=== PATIENT | female | born 1950 | race Caucasian/White ===

== ENCOUNTER → 2022-01-20 | Outpatient (CLI) | payer MEDICARE, OTHER ==
--- NOTE | 2022-01-20 16:31 | KCIC ---
EXAMINATION: MRI RIGHT KNEE WITHOUT IV CONTRAST CLINICAL HISTORY: Right knee pain and swelling after a fall one week ago. TECHNIQUE: Multiplanar multisequential images obtained through the knee without intravenous contrast. COMPARISON: None FINDINGS: MENISCI: Medial Meniscus: Fraying of the meniscal free edge in the body Lateral Meniscus: Fraying of the meniscal free edge in the body LIGAMENTS: ACL: Intact PCL: Intact MCL: Intact LCL Complex: Intact CARTILAGE: Medial Femoral Condyle: Large area(s) of predominantly low grade (less than 50% thickness) cartilage loss and or fissuring with smaller area(s) of high grade (greater than 50% thickness) cartilage loss and or fissuring Medial Tibial Plateau: Large area(s) of high grade (greater than 50% thickness) partial thickness car tilage loss and or fissuring Lateral Femoral Condyle: Large area(s) of predominantly low grade (less than 50% thickness) cartilage loss and or fissuring with smaller area(s) of high grade (greater than 50% thickness) cartilage loss and or fissuring Lateral Tibial Plateau: Large area(s) of predominantly high grade (greater than 50% thickness) cartil age loss and or fissuring with smaller area(s) of full thickness cartilage loss and or fissuring Patella: Moderate sized area(s) of predominantly low grade (less than 50% thickness) cartilage loss a nd or fissuring with smaller area(s) of full thickness cartilage loss and or fissuring with subchondr al marrow reactive/cystic changes Trochlea: Small areas(s) of predominantly low grade (less than 50% thickness) cartilage loss and or f issuring with smaller area(s) of high grade (greater than 50% thickness) cartilage loss and or fissur ing TENDONS: Distal quadriceps and patellar tendons intact. Popliteus tendon intact. BONES AND MARROW: Nondisplaced triangular-shaped fracture through the inferior pole of the patella wi thout intra-articular extension. MUSCLES: Muscle bulk and signal intensity within normal limits. JOINT FLUID AND SYNOVIUM: Trace joint effusion. No synovitis. No Chavez's cyst. IMPRESSION: Nondisplaced fracture through the inferior pole of the patella without intra-articular extension. Moderate tricompartmental chondral wear as described. Medial and lateral meniscal fraying at the free edge. Electronically signed by: Bryon Tirado DO (01/20/2022 4:29 PM) [id number]
== END ==
LOC: KCIC MRI 12:40
PROVIDERS: ATTEND Nurse Practitioner Family
DX: S82.091A Other fracture of right patella, initial encounter for closed fracture (principal); M25.861 Other specified joint disorders, right knee; X58.XXXA Exposure to other specified factors, initial encounter; Y93.89 Activity, other specified; Y92.89 Other specified places as the place of occurrence of the external cause; Y99.8 Other external cause status
CPT/HCPCS: 73721